=== PATIENT | female | born 1955 | race Caucasian/White ===

== ENCOUNTER 2019-05-22 10:22 | Observation (INO) | payer OTHER ==
[2019-05-22] MEDS ORDERED: Sodium Chloride 0.9% 1,000 ML IV ONE (10:24)
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
[2019-05-22 11:14] LABS: CHLORIDE,CL 97 mmol/L (98-107); SODIUM,NA 133 mmol/L (136-145)
--- NOTE | 2019-05-22 11:44 | CR ---
INDICATION: Dyspnea TECHNIQUE: Chest 2 views COMPARISON: December 12, 2018 FINDINGS: Cardiovascular and mediastinum: Heart size and vasculature are normal in caliber and appearance. Left-sided port catheter is in satisfactory position. Lungs and pleural spaces: Lungs are clear. No sign of infiltrate or mass. No sign of pleural effusion. No pneumothorax. Bones and soft tissues: No significant findings. IMPRESSION: No acute findings and no significant changes from the prior exam. No findings to explain dyspnea. Dictated by Josue Salinas MD @ May 22 2019 11:42AM Signed by Dr. Josue Salinas @ May 22 2019 11:43AM
[2019-05-22] MEDS: Morphine 15 MG Tab PO PRN ×2 (12:20→18:31)
[2019-05-22] MEDS ORDERED: Ondansetron 4 MG/2 ML SDV IVPUSH PRN (12:25)
[2019-05-22] MEDS ORDERED: Albuterol/Ipratropium 3.0-0.5 MG/3 ML Neb Soln NEB PRN (12:25)
[2019-05-22] MEDS ORDERED: Acetaminophen 325 MG Tab PO PRN (12:25)
[2019-05-22] MEDS ORDERED: Magnesium Sulfate 2 GM in Sodium Chloride 0.9% with KCl 1,000 ML IV SCH (12:30)
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
[2019-05-22] MEDS ORDERED: SODIUM CHLORIDE 0.9% IV SCH (13:25)
[2019-05-22] MEDS ORDERED: MAGNESIUM SULFATE IV SCH (13:25)
[2019-05-22] MEDS ORDERED: POTASSIUM CHLORIDE IV SCH (13:25)
[2019-05-22] MEDS: Heparin Sodium 5,000 Units/ML Vial SUBCUT SCH (13:31)
[2019-05-22] MEDS: Piperacillin/Tazobactam 3.375 GM in Sodium Chloride 0.9% 100 ML IV SCH ×2 (13:32→18:34)
[2019-05-22] MEDS: [UNRECOGNIZED DRUG - OTHER] PO SCH ×2 (13:48→22:46)
[2019-05-22] MEDS: amLODIPine 5 MG Tab PO SCH (17:21)
[2019-05-22] MEDS ORDERED: Ibuprofen 400 MG Tab PO PRN (18:10)
[2019-05-22] MEDS: Ibuprofen 200 MG Tab PO SCH (18:41)
[2019-05-22] MEDS: NS + KCl 20mEq/L 1,000 ML IV SCH (21:19)
[2019-05-23] MEDS: Morphine 15 MG Tab PO PRN ×3 (00:34→12:28)
[2019-05-23] MEDS: Ibuprofen 200 MG Tab PO SCH ×3 (00:35→12:30)
[2019-05-23] MEDS: Heparin Sodium 5,000 Units/ML Vial SUBCUT SCH ×2 (00:36→12:32)
[2019-05-23] MEDS: Piperacillin/Tazobactam 3.375 GM in Sodium Chloride 0.9% 100 ML IV SCH ×3 (00:36→12:33)
[2019-05-23] MEDS: NS + KCl 20mEq/L 1,000 ML IV SCH (06:10)
[2019-05-23] MEDS: [UNRECOGNIZED DRUG - OTHER] PO SCH ×2 (06:21→14:21)
[2019-05-23 06:44] LABS: CHLORIDE,CL 102 mmol/L (98-107); SODIUM,NA 137 mmol/L (136-145)
[2019-05-23] MEDS: amLODIPine 5 MG Tab PO SCH (08:49)
[2019-05-23] MEDS ORDERED: MULTIVITAMIN WITH MINERALS PO SCH (09:00)
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
== END 2019-05-23 14:30 | disposition home or self-care (01) ==
LOC: MW.ED 10:22 → MW.MS 11:28
PROVIDERS: ADMIT Internal Medicine; ATTEND Internal Medicine
DX: J69.0 Pneumonitis due to inhalation of food and vomit (principal); E87.6 Hypokalemia; E86.0 Dehydration; C15.9 Malignant neoplasm of esophagus, unspecified; I10 Essential (primary) hypertension; E46 Unspecified protein-calorie malnutrition; Z79.899 Other long term (current) drug therapy
CPT/HCPCS: 36415; 71046; 80048; 80053; 81003; 83735; 85025; 87040; 93005; 96360; 99285; A9270; J1642; J1644; J2543; J3475; J3480; J7030; J7040; 96361; 96365; 96366; 96367; 96368; 96372; 96376; G0378

== ENCOUNTER 2019-10-06 12:33 | Emergency (ER) | payer OTHER ==
[2019-10-06] MEDS ORDERED: Albuterol/Ipratropium 3.0-0.5 MG/3 ML Neb Soln NEB ONE (12:38)
--- NOTE | 2019-10-06 12:45 | EDM.PDOC ---
ED HPI GENERAL MEDICAL PROBLEM - General Chief Complaint: Respiratory Problem Stated Complaint: THROAT CANCER Time Seen by Provider: 10/06/19 13:29 Source of Information: Reports: Family (.) History Limitations: Reports: Respiratory Distress - History of Present Illness INITIAL COMMENTS - FREE TEXT/NARRATIVE: This 64 year old female is admitted to the ED with a chief complaint of trouble breathing since this morning. The states that she was diagnosed with throat cancer in February of 2019 at [facility] in [place], [place]. She was recently seen within the last week according to the . She was told that her tumor was very large. She has received chemotherpy and radiation for her throat cancer. 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) Location: Reports: Neck, Chest Severity: Severe Associated Symptoms: Reports: Shortness of Breath - Related Data Allergies Allergy/AdvReac Type Severity Reaction Status Date / Time No Known Allergies Allergy Verified 10/06/19 12:54 Home Meds: Home Meds Ibuprofen [Advil] 600 mg PO Q6H PRN 05/22/19 [History] Magnesium Oxide [Magnesium] 800 mg PO DAILY 05/22/19 [History] Miracle Mouthwash 10 ml PO TID 05/22/19 [History] Morphine Sulfate 15 mg PO Q6H PRN 05/22/19 [History] Multivitamin with Minerals [Multiple Vitamin] 1 tab PO DAILY 05/22/19 [History] Potassium Chloride 20 meq PO DAILY 05/22/19 [History] amLODIPine [Norvasc] 5 mg PO DAILY 05/22/19 [History] Amoxicillin/Clavulanate K [Augmentin 875-125 MG] 1 tab PO BID #7 tablet [Rx] Past Medical History Cardiovascular History: Reports: Hypertension Respiratory History: Reports: None Gastrointestinal History: Reports: None Genitourinary History: Reports: None Musculoskeletal History: Reports: None Neurological History: Reports: None Psychiatric History: Reports: None Endocrine/Metabolic History: Reports: None Oncologic (Cancer) History: Reports: Esophageal Other Oncologic History: Throat cancer with treatment - Infectious Disease History Infectious Disease History: Reports: Chicken Pox Social & Family History - Family History Family Medical History: Noncontributory - Caffeine Use Caffeine Use: Reports: None - Living Situation & Occupation Living situation: Reports: ED ROS GENERAL - Review of Systems Review Of Systems: See Below Constitutional: Reports: No Symptoms HEENT: Reports: Other (Throat cancer in severe respiratory distress.) Cardiovascular: Reports: No Symptoms Endocrine: Reports: No Symptoms GI/Abdominal: Reports: No Symptoms, Other (she has a peg tube in for feeding.) : Reports: No Symptoms Musculoskeletal: Reports: No Symptoms Skin: Reports: No Symptoms Neurological: Reports: Other (Respiratory distress.) ED EXAM, GENERAL - Physical Exam Exam: See Below Exam Limited By: Respiratory Distress General Appearance: Alert, Anxious, Moderate Distress (complaining of moderate difficulty breathing) Eye Exam: Bilateral Eye: EOMI, Normal Inspection, PERRL Ears: Normal External Exam, Normal Canal, Hearing Grossly Normal, Normal TMs Ear Exam: Bilateral Ear: Auricle Normal, Canal Normal, TM normal Nose: Normal Inspection, Normal Mucosa, No Blood Throat/Mouth: No Airway Compromise (moderate airway compromise.), Other (unable to evaluate due to throat cancer.) Neck: Other (signs of radiation burn to anterior neck.) Respiratory/Chest: Respiratory Distress (moderate to severe.), Wheezing (apex of the lungs only.), Prolonged Expiration Cardiovascular: Normal Peripheral Pulses, No Edema, No Gallop, No JVD, No Murmur , No Rub, Tachycardia Peripheral Pulses: 2+: Carotid (R), Radial (L), Radial (R), Dorsalis Pedis (L), Dorsalis Pedis (R), 3+: Carotid (L) GI/Abdominal: Soft, Non-Tender, No Abnormal Bruit, No Mass, Other (left peg tube in place.) Extremities: Normal Inspection, Normal Range of Motion, Non-Tender, Normal Capillary Refill, No Pedal Edema Neurological: Other (intubated at this point.) ED RESPIRATORY PROCEDURES - Endotracheal Intubation Time of Intubation: 13:32 ET Intubation Indication: Respiratory Failure, Other (and obstruction from tumor mass) Preparation: Suction, BVM Set Up, Difficult Airway Equip Airway Assessment: Loose Teeth Pre-Oxygenation: Assisted with BVM, 100% FiO2 Anesthesia Meds: Etomidate (10mg), Midazolam, Succinylcholine (60mg) Placement: Cuffed, Complicated Placement Cords Visualized: Grade 3 ETT Size In mm: 6.5 Number of Attempts: 1 Confirmed By: CO2 Indicator, Bilateral Breath Sounds, Chest Xray (ET tgu) Tube Secured By: By RT Endotracheal Intubation Comment: The HOG SCALDER (Chuck Craig) intubated this patient with the aid of a GlideScope and a bougie. I was prepared to do a Trach if deemed necessary. She was successfully intubated without any real problems on the first past. Course - Vital Signs Text/Narrative:: I talked with Dr. Casey at [facility] in [place], [place] at 1:49 PM. I discussed the case in detail. He requested Zosyn 3.375 grams, IV and Solu-Medroll 60mg IV. This will be given before air transport. She will be a direct admission to the ICU. A bed will be assigned when she arrives. The flight team is here at 2:00PM for transport. Last Recorded V/S: Last Vital Signs Temp 97.8 F 10/06/19 12:50 Pulse 150 H 10/06/19 12:50 Resp 32 H 10/06/19 12:50 BP 249/110 H 10/06/19 12:50 Pulse Ox 98 10/06/19 12:50 - Orders/Labs/Meds Orders: Active Orders 24 hr Category Date Time Status EKG 12 Lead [EKG Documentation Completion] [RC] STAT Care 10/06/19 12:39 Active RASS Sedation Scale [RC] ASDIRECTED Care 10/06/19 13:20 Active RT Aerosol Therapy [RC] ASDIRECTED Care 10/06/19 12:38 Active Chest 1V Frontal [CR] Stat Exams 10/06/19 12:39 Taken BLOOD GAS ARTERIAL [BG] Stat Lab 10/06/19 12:39 Ordered URINALYSIS W/MICROSCOPIC [UA W/MICROSCOPIC] [URIN] Stat Lab 10/06/19 13:45 Results Propofol [Diprivan 100 ML] 100 ml Med 10/06/19 13:30 Active IV TITRATE Desired Level of Sedation (RASS) [AST] Click To Edit Oth 10/06/19 13:20 Ordered Medication Orders Propofol (Diprivan 100 Ml) 100 mls @ 1.769 mls/hr IV TITRATE TAZ; Protocol Labs: Laboratory Tests 10/06/19 10/06/19 10/06/19 Range/Units 12:45 12:45 12:45 WBC 30.04 H (4.0-11.0) K/uL RBC 4.29 L (4.30-5.90) M/uL Hgb 11.2 L (12.0-16.0) g/dL Hct 34.3 L (36.0-46.0) % MCV 80.0 (80.0-98.0) fL MCH 26.1 L (27.0-32.0) pg MCHC 32.7 (31.0-37.0) g/dL RDW Std Deviation 41.9 (28.0-62.0) fl RDW Coeff of Regina 15 (11.0-15.0) % Plt Count 414 H (150-400) K/uL MPV 11.30 (7.40-12.00) fL Add Manual Diff YES Neutrophils % (Manual) 67 (48.0-80.0) % Band Neutrophils % 4 % Lymphocytes % (Manual) 19 (16.0-40.0) % Monocytes % (Manual) 9 (0.0-15.0) % Eosinophils % (Manual) 1 (0.0-7.0) % Absolute Seg Neuts 20.1 H (1.4-5.7) Band Neutrophils # 1.2 Lymphocytes # (Manual) 5.7 H (0.6-2.4) Monocytes # (Manual) 2.7 H (0.0-0.8) Eosinophils # (Manual) 0.3 (0.0-0.7) VBG pH 7.30 L (7.31-7.41) VBG pCO2 71 H (35-45) mmHG VBG pO2 49 H (30-40) mmHG VBG HCO3 35 H (22-30) mEq/L VBG Total CO2 33 L (41-51) mmol/L VBG Base Excess 6.6 H (-3.0-3.0) Sodium 134 L (136-145) mmol/L Potassium 3.6 (3.5-5.1) mmol/L Chloride 93 L (98-107) mmol/L Carbon Dioxide 33.6 H (21.0-32.0) mmol/L BUN 28 H (7.0-18.0) mg/dL Creatinine 0.7 (0.6-1.0) mg/dL Est Cr Clr Drug Dosing 76.57 mL/min Estimated GFR (MDRD) > 60.0 ml/min Glucose 213 H (74-106) mg/dL Calcium 9.9 (8.5-10.1) mg/dL Total Bilirubin 0.4 (0.2-1.0) mg/dL AST 37 (15-37) IU/L ALT 27 (14-63) IU/L Alkaline Phosphatase 120 H (46-116) U/L Troponin I < 0.050 (0.000-0.056) ng/mL B-Natriuretic Peptide (<100) PG/ML Total Protein 7.9 (6.4-8.2) g/dL Albumin 3.5 (3.4-5.0) g/dL Globulin 4.4 H (2.6-4.0) g/dL Albumin/Globulin Ratio 0.8 L (0.9-1.6) Urine Color Urine Appearance Urine pH (5.0-8.0) Ur Specific Wake (1.001-1.035) Urine Protein (NEGATIVE) mg/dL Urine Glucose (UA) (NEGATIVE) mg/dL Urine Ketones (NEGATIVE) mg/dL Urine Occult Blood (NEGATIVE) Urine Nitrite (NEGATIVE) Urine Bilirubin (NEGATIVE) Urine Urobilinogen (<2.0) EU/dL Ur Leukocyte Esterase (NEGATIVE) 10/06/19 10/06/19 Range/Units 12:45 13:45 WBC (4.0-11.0) K/uL RBC (4.30-5.90) M/uL Hgb (12.0-16.0) g/dL Hct (36.0-46.0) % MCV (80.0-98.0) fL MCH (27.0-32.0) pg MCHC (31.0-37.0) g/dL RDW Std Deviation (28.0-62.0) fl RDW Coeff of Regina (11.0-15.0) % Plt Count (150-400) K/uL MPV (7.40-12.00) fL Add Manual Diff Neutrophils % (Manual) (48.0-80.0) % Band Neutrophils % % Lymphocytes % (Manual) (16.0-40.0) % Monocytes % (Manual) (0.0-15.0) % Eosinophils % (Manual) (0.0-7.0) % Absolute Seg Neuts (1.4-5.7) Band Neutrophils # Lymphocytes # (Manual) (0.6-2.4) Monocytes # (Manual) (0.0-0.8) Eosinophils # (Manual) (0.0-0.7) VBG pH (7.31-7.41) VBG pCO2 (35-45) mmHG VBG pO2 (30-40) mmHG VBG HCO3 (22-30) mEq/L VBG Total CO2 (41-51) mmol/L VBG Base Excess (-3.0-3.0) Sodium (136-145) mmol/L Potassium (3.5-5.1) mmol/L Chloride (98-107) mmol/L Carbon Dioxide (21.0-32.0) mmol/L BUN (7.0-18.0) mg/dL Creatinine (0.6-1.0) mg/dL Est Cr Clr Drug Dosing mL/min Estimated GFR (MDRD) ml/min Glucose (74-106) mg/dL Calcium (8.5-10.1) mg/dL Total Bilirubin (0.2-1.0) mg/dL AST (15-37) IU/L ALT (14-63) IU/L Alkaline Phosphatase (46-116) U/L Troponin I (0.000-0.056) ng/mL B-Natriuretic Peptide 109 H (<100) PG/ML Total Protein (6.4-8.2) g/dL Albumin (3.4-5.0) g/dL Globulin (2.6-4.0) g/dL Albumin/Globulin Ratio (0.9-1.6) Urine Color YELLOW Urine Appearance CLEAR Urine pH 7.5 (5.0-8.0) Ur Specific Wake 1.015 (1.001-1.035) Urine Protein 30 H (NEGATIVE) mg/dL Urine Glucose (UA) 100 H (NEGATIVE) mg/dL Urine Ketones NEGATIVE (NEGATIVE) mg/dL Urine Occult Blood TRACE-INTACT H (NEGATIVE) Urine Nitrite NEGATIVE (NEGATIVE) Urine Bilirubin NEGATIVE (NEGATIVE) Urine Urobilinogen 0.2 (<2.0) EU/dL Ur Leukocyte Esterase NEGATIVE (NEGATIVE) Meds: Medications Generic Name Dose Route Start Last Admin Trade Name Freq PRN Reason Stop Dose Admin Propofol 100 mls @ 1.769 mls/hr 10/06/19 13:30 Diprivan 100 Ml IV TITRATE TAZ Protocol 5 MCG/KG/MIN Discontinued Medications Generic Name Dose Route Start Last Admin Trade Name Rosy PRN Reason Stop Dose Admin Albuterol/Ipratropium 9 ml 10/06/19 12:38 10/06/19 12:44 Duoneb 3.0-0.5 Mg/3 Ml NEB 10/06/19 12:39 3 ml ONETIME ONE Administration Fentanyl Confirm 10/06/19 13:17 Sublimaze Administered 10/06/19 13:18 Dose 100 mcg .ROUTE .STK-MED ONE Fentanyl 50 mcg 10/06/19 13:19 Fentanyl IVPUSH 10/06/19 13:20 ONETIME ONE Propofol Confirm 10/06/19 13:16 Diprivan 100 Ml Administered 10/06/19 13:17 Dose 100 mls @ as directed .ROUTE .STK-MED ONE Sodium Chloride Confirm 10/06/19 14:01 Normal Saline Administered 10/06/19 14:02 Dose 50 mls @ as directed .ROUTE .STK-MED ONE Methylprednisolone Sodium Succinate Confirm 10/06/19 14:01 Solu-Medrol Administered 10/06/19 14:02 Dose 80 mg .ROUTE .STK-MED ONE Midazolam HCl Confirm 10/06/19 13:22 Versed 1 Mg/Ml Administered 10/06/19 13:23 Dose 6 mg .ROUTE .STK-MED ONE Departure - Departure Time of Disposition: 14:18 Disposition: DC/Tfer to Other 70 Preliminary Cause of *Q: Respiratory Failure Condition: Poor Clinical Impression: Acute airway obstruction, Throat cancer Aspiration into airway Qualifiers: Encounter type: initial encounter Qualified Code(s): T17.908A - Unspecified foreign body in respiratory tract, part unspecified causing other injury, initial encounter - Discharge Information *PRESCRIPTION DRUG MONITORING PROGRAM REVIEWED*: Yes *COPY OF PRESCRIPTION DRUG MONITORING REPORT IN PATIENT DANIEL: Yes Critical Care Note - Critical Care Note Total Time (mins): 60 Comments: This patient required my full attention due to severe respiratory problems. I had to review and arrange transfer to [facility] in [place], [place] for air ambulance transfer. Sepsis Event Note - Focused Exam Vital Signs: Vital Signs Temp Pulse Resp BP Pulse Ox 10/06/19 12:50 97.8 F 150 H 32 H 249/110 H 98 Date Exam was Performed: 10/06/19 Time Exam was Performed: 14:24 - My Orders Last 24 Hours: My Active Orders 10/06/19 12:38 RT Aerosol Therapy [RC] ASDIRECTED 10/06/19 12:39 EKG 12 Lead [EKG Documentation Completion] [RC] STAT Chest 1V Frontal [CR] Stat BLOOD GAS ARTERIAL [BG] Stat 10/06/19 13:20 RASS Sedation Scale [RC] ASDIRECTED Desired Level of Sedation (RASS) [AST] Click To Edit 10/06/19 13:30 Propofol [Diprivan 100 ML] 100 ml IV TITRATE 10/06/19 13:45 URINALYSIS W/MICROSCOPIC [UA W/MICROSCOPIC] [URIN] Stat - Assessment/Plan Last 24 Hours: My Active Orders 10/06/19 12:38 RT Aerosol Therapy [RC] ASDIRECTED 10/06/19 12:39 EKG 12 Lead [EKG Documentation Completion] [RC] STAT Chest 1V Frontal [CR] Stat BLOOD GAS ARTERIAL [BG] Stat 10/06/19 13:20 RASS Sedation Scale [RC] ASDIRECTED Desired Level of Sedation (RASS) [AST] Click To Edit 10/06/19 13:30 Propofol [Diprivan 100 ML] 100 ml IV TITRATE 10/06/19 13:45 URINALYSIS W/MICROSCOPIC [UA W/MICROSCOPIC] [URIN] Stat
[2019-10-06] MEDS ORDERED: propofoL 100 ML ONE (13:16)
[2019-10-06] MEDS ORDERED: fentaNYL 100 MCG/2 ML SDV ONE (13:17)
[2019-10-06] MEDS ORDERED: fentaNYL 50 MCG/ML SDV IVPUSH ONE ×2 (13:19→13:25)
[2019-10-06 13:22] LABS: BLOOD UREA NITROGEN,BUN 28 mg/dL (7.0-18.0); CARBON DIOXIDE,CO2 33.6 mmol/L (21.0-32.0); CHLORIDE,CL 93 mmol/L (98-107); GLUCOSE RANDOM 213 mg/dL (74-106); POTASSIUM,K 3.6 mmol/L (3.5-5.1); SODIUM,NA 134 mmol/L (136-145)
[2019-10-06] MEDS ORDERED: Midazolam 1 MG/ML 2 ML SDV ONE (13:22)
[2019-10-06] MEDS ORDERED: Midazolam 5 MG/ML SDV IVPUSH ONE (13:25)
[2019-10-06] MEDS ORDERED: Etomidate 2 MG/ML 20 ML SDV IVPUSH ONE (13:25)
[2019-10-06] MEDS ORDERED: propofoL 100 ML IV SCH (13:30)
[2019-10-06] MEDS ORDERED: Sodium Chloride 0.9% 1,000 ML IV ONE ×2 (13:30→13:50)
[2019-10-06] MEDS ORDERED: Rocuronium 100 MG/10 ML MDV ONE (13:30)
[2019-10-06] MEDS ORDERED: Piperacillin/Tazobactam 3.375 GM in Sodium Chloride 0.9% 50 ML IV ONE (13:50)
[2019-10-06] MEDS ORDERED: methylPREDNISolone Sodium Succinate 40 MG/1 ML SDV IVPUSH ONE (13:50)
--- NOTE | 2019-10-06 13:57 | PCM.PRNOTE ---
- Free Text/Narrative Note: Anes Note I was called to ER to provide intubation services. This patient has a history of throat cancer with radiation. She has partial airway obstruction, along with tracheal deviation due to tumor. IV sedation of 3 mg versed given. I was able to perform an awake look video laryngoscopy. The epiglottis was swollen and distorted, and I was not able to see vocal cords. 50 mg etomidate and 50 mg anectine was administered. A blue intubation was passed under video laryngoscopy guidance. I was then able to easily pass a 6/5 ET tube over the bougie. Atraumatice procedure. Tube secure at 20 cm at teeth. BBS and equal. O2 sats remained over 96% before during and after procedure. After BBS confirmed, 100 mg fentnayl given and a propofol infusion was started. VS stable. Procedure tolerated well. Time with patient [id number] Chuck Craig CRNA
[2019-10-06] MEDS ORDERED: methylPREDNISolone Sodium Succinate 40 MG/1 ML SDV ONE (14:01)
[2019-10-06] MEDS ORDERED: Sodium Chloride 0.9% 50 ML ONE (14:01)
--- NOTE | 2019-10-06 14:10 | CR ---
Chest: Supine portable view of the chest was obtained. Comparison: Previous chest x-ray of 05/22/19. Endotracheal tube is seen. Tip lies at the upper level of the clavicles. Infusion port is seen which is stable in appearance. Lungs show no acute parenchymal change. Heart size is normal. Tortuous thoracic aorta is noted. Slight widening of the superior mediastinal soft tissues is noted which is stable from previous chest x-ray. Bony structures are grossly intact. Impression: 1. Tip of endotracheal tube at the upper level of the clavicles. 2. Other findings as noted above which appear chronic. 3. Nothing acute is definitely appreciated. Diagnostic code #3 This report was dictated in [place] Standard Time
--- NOTE | 2019-10-06 16:37 | CR ---
Chest: Portable view of the chest was obtained. Comparison: Prior subsequent post intubation chest x-ray performed on the day at time 1:39 PM. Previous chest x-ray 05/22/19 is also available. Heart size is normal. Tortuous thoracic aorta is seen. Infusion port is seen on the left side. Equivocal bronchitis is seen on this study. Lungs otherwise are clear with no alveolar type densities. Bony structures are grossly intact. Impression: 1. Possible bronchitis is seen on this chest x-ray. 2. Other findings believed to be stable. Diagnostic code #3 This report was dictated in [place] Standard Time
== END 2019-10-06 14:15 | disposition other institution (70) ==
LOC: MW.ED 12:33
DX: T17.908A Unspecified foreign body in respiratory tract, part unspecified causing other injury, initial encounter (principal); J98.8 Other specified respiratory disorders; C14.0 Malignant neoplasm of pharynx, unspecified; I10 Essential (primary) hypertension; Z79.899 Other long term (current) drug therapy
CPT/HCPCS: 31500; 36415; 71045; 80053; 81001; 82803; 83880; 84484; 85025; 94640; 99291; J0330; J2250; J2704; J3010; J3490; 99285; 99285-25; J7620-GY